=== PATIENT | female | born 1970 | race Caucasian/White ===

== ENCOUNTER 2024-12-10 08:15 | Outpatient (RCR) | payer OTHER, BC, SELFPAY ==
--- NOTE | 2024-10-26 15:38 | OPREHPOC ---
Outpatient Therapy Plan of Care This is a Multidisciplinary Plan of Care that may contain components documented by all disciplines (PT, OT, and ST.) PT Problem 1 PT Problem #1 Knowledge Deficit PT Goal 1 Goal / Goal Update 1. Patient will perform independent HEP 2. Patient will verbalize urge suppression strategies Target Visit 2 PT Problem 2 PT Problem #2 Impaired Strength PT Goal 1 Goal / Goal Update 1. Improve pelvic floor strength to 5/5 to reduce incontinence 2. Improve pelvic floor endurance to 10 seconds to reduce incontinence Target Visit 5 PT Problem 3 PT Problem #3 Impaired Functional ADLs PT Goal 1 Goal / Goal Update 1. Patient will void no more than 8 times in a 24 hour period 2. Patient will be able to hold urge to void at least 30 minutes 3. Patient will report no urinary incontinence for at least 2 weeks
--- NOTE | 2024-10-26 15:38 | PTOPEVAL1 ---
Assessment and note entered by Elizabeth Oglesby DPT Evaluation Information Assessment Status Evaluation ICD-10 Condition Codes (PT) Weakness R53.1,Urge incontinence N39.41,Mixed incontinence N39.46,Stress incontinence N39.3 Subjective Information Pt reports urinary issues that have been going on for awhile and are worsening. Reports increased frequency and stress incontinence with coughing or sneezing. Voids 11-12 times a day and 2 times at night. 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 Can hold urge to void a few minutes and reports she cannot hold urge for BM at all. Incontinence occurs multiple times a day but small amounts, has not worn pads. Has had to change underwear and shorts at times. BM daily (on average). Has had some pelvic pain due to dryness from hormonal changes. Three previously deliveries- 1 C- section. Pt has been diagnosed with endometriosis with ablation 3 years ago. No b /b history. Pt drinks water and 1 unsweet tea a day. Patient goal: no more incontinence, avoid any type of surgery Return to MD in 6 months. Reported Pain Level Pain Score 0: Self Report Assessment PT Clinical Summary The patient is presenting to skilled therapy with a history of progressing mixed urinary incontinence, frequency, and urgency. She presents with decreased pelvic floor strength and endurance as well as decreased abdominal and hip strength. These impairments are contributing to her urinary symptoms and daily incontinence and she will benefit from therapy to reduce incontinence and return to full function. Plan of Care Interventions Manual Therapy,Neuro Re-education,Patient/ Caregiver Education,Therapeutic Activities, Therapeutic Exercise PT Services Indicated Yes Treatment Frequency and 1 time a week for 5 visits Duration These treatments will address the objective and functional deficits as defined above. The patient will be advanced safely and appropriately in order for the patient to progress towards his/her prior level of function. Additional exercises will be introduced and as well as a comprehensive home exercise program upon discharge, if needed, ?to ensure carryover of functional gains achieved in the clinic. This treatment plan has been reviewed and agreement upon by the patient.
--- NOTE | 2024-12-10 08:48 | OPREHPOC ---
Outpatient Therapy Plan of Care This is a Multidisciplinary Plan of Care that may contain components documented by all disciplines (PT, OT, and ST.) PT Problem 1 PT Problem #1 Knowledge Deficit PT Goal 1 Goal / Goal Update 1. Patient will perform independent HEP 2. Patient will verbalize urge suppression strategies Target Visit 2 Progress Met PT Problem 2 PT Problem #2 Impaired Strength PT Goal 1 Goal / Goal Update 1. Improve pelvic floor strength to 5/5 to reduce incontinence 2. Improve pelvic floor endurance to 10 seconds to reduce incontinence update 12/10/24 1. not met 2. met Target Visit 5 Progress Partially Met PT Problem 3 PT Problem #3 Impaired Functional ADLs PT Goal 1 Goal / Goal Update 1. Patient will void no more than 8 times in a 24 hour period 2. Patient will be able to hold urge to void at least 30 minutes 3. Patient will report no urinary incontinence for at least 2 weeks update 12/10/24 1. met 2. met 3. improved to 2 times per week Target Visit 5
--- NOTE | 2024-12-10 08:48 | PTOPPROG ---
Assessment and note entered by Elizabeth Oglesby DPT Evaluation Information Assessment Status Progress ICD-10 Condition Codes (PT) Weakness R53.1,Urge incontinence N39.41,Mixed incontinence N39.46,Stress incontinence N39.3 Subjective Information Pt reports feeling better with therapy. Thinks the incontinence is happening less often and is a smaller volume. Unsure how many times incontinence has been over the last week, maybe 1-2 times. Has not been waking up to void as much at night. Thinks she is voiding less than 10 times a day. Assessment PT Clinical Summary The patient has made good progress in therapy and reports decreased volume of incontinence and decreased frequency of incontinence to maybe 2 times in the last week. She demonstrates improved hip and abdominal strength and improved pelvic floor contraction and coordination. Due to her progress, patient plans to continue independent HEP for approximately 1 month and will call if another appointment is needed at that time. Plan of Care Interventions Manual Therapy,Neuro Re-education,Patient/ Caregiver Education,Therapeutic Activities, Therapeutic Exercise PT Services Indicated Yes Treatment Frequency and 1 visit in 1 month if needed (patient to call) Duration These treatments will address the objective and functional deficits as defined above. The patient will be advanced safely and appropriately in order for the patient to progress towards his/her prior level of function. Additional exercises will be introduced and as well as a comprehensive home exercise program upon discharge, if needed, ?to ensure carryover of functional gains achieved in the clinic. This treatment plan has been reviewed and agreement upon by the patient.
--- NOTE | 2025-01-12 16:05 | PTOPDC ---
Assessment and note entered by Elizabeth Oglesby DPT Evaluation Information Assessment Status Discharge - Pt Not Present ICD-10 Condition Codes (PT) Weakness R53.1,Urge incontinence N39.41,Mixed incontinence N39.46,Stress incontinence N39.3 Subjective Information - Assessment PT Clinical Summary Patient has not called to schedule further visits. Her case will be discharged this date. Plan of Care PT Services Indicated No
== END 2025-01-13 08:04 | disposition home or self-care (01) ==
LOC: ANHGOSHPT 08:15
DX: N39.3 Stress incontinence (female) (male) (principal)
CPT/HCPCS: 97112; 97161; 97530

== ENCOUNTER 2025-04-23 12:32 | Emergency (ER) | payer OTHER, BC, SELFPAY ==
--- NOTE | 2025-04-23 12:34 | ED_ITS ---
HPI - URI/Sore Throat General Chief Complaint: Upper Respiratory Infection Stated Complaint: Strep Symptoms Time Seen by Provider: 04/23/25 12:34 Source: patient Mode of arrival: ambulatory Limitations: no limitations History of Present Illness HPI Narrative: patient is a 55-year-old female presents with worsening cough over the past 2 and half to 3 weeks. Patient states she has no congestion, drainage and is not coughing anything up. Reports her cough is keeping her awake at night and feels like burning in her chest. Denies any fever, chills, nausea, vomiting, diarrhea. Related Data Allergies Allergy/AdvReac Type Severity Reaction Status Date / Time erythromycin base Allergy Mild STATES WAS Verified 04/23/25 12:55 TOLD NOT TO TAKE BY MD Penicillins Allergy Mild hives,rash, Verified 04/23/25 12:55 diarrhea,fe laurence Sulfa (Sulfonamide Allergy Mild hives over Verified 04/23/25 12:55 Antibiotics) entire body AMOXICILLIN TRIHYDRATE Allergy Unknown Unknown Uncoded 04/23/25 12:55 Review of Systems Review of Systems: All systems reviewed & are unremarkable except as noted in HPI and below Constitutional: Constitutional: Denies chills, Denies fatigue, Denies fever(s), Denies headache(s), Denies malaise and Denies weakness Eyes: Eyes: Denies blurry vision, Denies itchy eyes and Denies loss of vision ENT: Denies otalgia, Denies headache(s), Denies nasal congestion, Denies sinus pain and Denies sore throat Cardiovascular: Cardiovascular: Denies chest pain, Denies irregular heart rhythm and Denies dyspnea Respiratory: Respiratory: Reports cough and Denies dyspnea Gastrointestinal: Gastrointestinal: Denies abdominal pain, Denies diarrhea, Denies nausea and Denies vomiting Musculoskeletal: Musculoskeletal: Denies back pain, Denies myalgias and Denies arthralgias Integumentary/Breasts: Skin/Breast: Denies pruritus and Denies rash Neurologic: Denies headache(s), Denies loss of vision and Denies weakness Psychiatric: Psychiatric: Reports no additional psychiatric complaints Endocrine: Endocrine: Denies fatigue Allergic/Immunologic: Allergic/Immunologic: Denies itchy eyes PMFSH Comments At time of signature, agree with nursing past medical, surgical, social and family history. There is no relevant family history pertinent to the presenting complaint. Exam Const: General: cooperative, healthy appearing, comfortable, no acute distress and well nourished Nutritional Appearance: well nourished Orienta tion/consciousness: patient oriented x3 Limitations: no limitations HENMT: Head: normal to inspection, normocephalic and atraumatic Ears: hearing grossly normal bilaterally, external ears normal, TM's normal bilaterally, EAC's normal and no periauricular adenopathy Face/Nose/Sinus: Normal external nose present, Normal nasal mucous membranes and turbinates present, normal facial exam, sinuses nontender and face symmetric Face and sinus: normal facial exam, sinuses nontender and face symmetric Mouth: Yes Normal oral and palatal mucosa present, Yes lip normal, Yes tongue normal, Yes Normal salivary glands and ducts present, Yes oropharynx normal and Yes moist mucous membranes Teeth and gingiva: dentition normal Throat: posterior oropharynx normal, tonsils normal and uvula midline Eyes: General: appearance normal, both eyes and all related structures Alignment and Position: alignment normal and position normal Periorbital: periorbital findings normal Eyelids: eyelids normal Pupils: Equal, round and reactive pupils present Neck: Neck: normal visual inspection, full ROM, no lymphadenopathy and supple Chest: Chest palpation & inspection: normal inspection of the chest and normal palpation of entire chest wall Resp: Effort & Inspection: normal respiratory effort, able to speak in complete sentences and Actively coughing dry Auscultation: clear to auscultation bilaterally, no crackles, no rales, no rhonchi and no wheezes Cardio: Rate: regular rate Rhythm: regular rhythm Heart sounds: S1 normal heart sound present and S2 normal heart sound present GI: Inspection: normal to inspection Skin: General skin exam: normal color and no rashes or lesions noted Neuro: General: patient oriented x3 and moves all extremities Cranial nerves: Yes Equal, round and reactive pupils present Speech: normal speech Gait exam (Neuro): Normal gait present Extrem: General: normal to inspection, full ROM and no edema Psych: Appearance: grossly normal and well kempt Mental Status: mental status grossly normal Speech and movement: Normal speech and movement present Affect: normal affect Attitude: cooperative Thought process: Normal thought process present Course Course Emergency Course: Patient is aware of diagnosis, understands and agrees to treatment plan. Anticipatory guidance given. Patient agrees to follow-up as directed and is aware of reasons to seek care at the emergency department. Portions of this record may have been created with voice recognition software Level of Care: Express Care Visit Vital Signs Vital signs: Vital Signs Temperature 36.7 C 04/23/25 12:39 Pulse Rate 72 04/23/25 12:39 Respiratory Rate 18 04/23/25 12:39 Blood Pressure 121/71 04/23/25 12:39 Pulse Oximetry 99 04/23/25 12:39 Oxygen Delivery Room Air 04/23/25 12:39 Temperature 36.7 C 04/23/25 12:39 Pulse Rate 72 04/23/25 12:39 Respiratory Rate 18 04/23/25 12:39 Blood Pressure 121/71 04/23/25 12:39 Pulse Oximetry 99 04/23/25 12:39 Oxygen Delivery Room Air 04/23/25 12:39 MDM MDM Narrative Medical decision making narrative: Based on length of symptoms will treat with steroids and antibiotics. Patient reports her nebulizer made her feel better but is in need of a refill. Pt well hydrated appearing, in no respiratory distress, hemodynamically stable. Recommend supportive care. The patient is stable at time of discharge the clinical impression was discussed and the patient was given the opportunity to ask questions, which were addressed as completely as possible given the information available at present. Anticipatory guidance and return to care precautions were discussed and the importance of primary care follow-up was stressed and encouraged. The patient voiced understanding of the plan, indications to return, and the need for follow-up. Exam findings show no acute concerns or changes Patient is appropriate for outpatient treatment and follow-up. Differential Diagnosis Differential Diagnosis: Differential diagnosis considered: Downing virus, strep pharyngitis, allergic rhinitis, upper respiratory tract infection, sinusitis, rhinosinusitis, nasopharyngitis. viral pharyngitis, otitis media, otitis externa, otitis effusion, foreign body, cerumen impaction, viral syndrome, and influenza. Medical Records I have reviewed the following patient records and this information was taken into consideration when formulating the assessment and plan.: previous clinic visits Discharge Plan Discharge Clinical Impression: Bronchitis Patient Disposition: Home Condition: Stable Instructions: Acute Bronchitis (ED) Additional Instructions: Take antibiotic as prescribed. Take steroids in the morning with food. use nebulizer as needed for coughing Other symptomatic treatments include: -Alternate Tylenol and Motrin per package directions for fever or pain: Tylenol 650-1000mg by mouth every 4-6 hours. Do not exceed 4000mg in 24 hours. Advil (Ibuprofen) 600 mg by mouth every 6 hours. Do not exceed 2400mg in 24 hours. 8 AM: Tylenol 11 AM: Ibuprofen 2 PM: Tylenol 5 PM: Ibuprofen 8 PM: Tylenol 11 PM: Ibuprofen 2 AM: Tylenol 5 AM: Ibuprofen -Antihistamine medication such as Benadryl at night and Zyrtec/Claritin/Nora during the day can help improve symptoms. -Use Flonase twice a day for 5 days then daily to help reduce the inflammation and dry up your sinuses. -You can also use Sudafed or Mucinex. Be sure to drink plenty of water with t hese medications at least 8 ounces with every dose and it is important to drink 8 to 10 glasses of water per day. Water is a natural decongestant -Eat and drink things that are easy to swallow, like tea or soup, or popsicles. -Oral rinses such as: Salt water gargles and/or may use topical anesthetic (eg. Chloraseptic spray) or lozenges to relieve dryness or throat pain). -Frequent hand washing or hand roller die cutting machine operator is one of the best ways to prevent spread of infection. -Using a vaporizer or humidifier at night will also help thin secretions and help with coughing up phlegm. Call your Primary Care Doctor and make a follow-up appointment in 3 days. If your cough worsens, you develop a fever greater than 103, you develop shaking chills, a fast heartbeat, trouble breathing and/or feel you are are breathing much faster than usual, call your Primary Care Doctor or go to the ER. Patient Language: Lithuanian Prescriptions: New albuterol sulfate 2.5 mg /3 mL (0.083 %) solution for nebulization 2.5 mg inhalation Q6H Qty: 90 0RF doxycycline monohydrate 100 mg tablet 100 mg PO BID 5 Days Qty: 10 0RF prednisone 20 mg tablet 40 mg PO DAILY 5 Days Qty: 10 0RF Follow-up/Referrals: Pool Grover MD [Physician, Family Practice] - 3 Days Stand Alone Forms: Work/School Release IP Time of Disposition: 13:04
[2025-04-23 12:39] VITALS: BP 121/71; PULSE 72; RESP 18; TEMP 36.7; O2SAT 99
== END 2025-04-23 13:07 | disposition home or self-care (01) ==
PROVIDERS: Emergency Provider Nurse Practitioner Family
DX: J40 Bronchitis, not specified as acute or chronic (principal)
CPT/HCPCS: 99213; G0463